=== PATIENT | female | born 1955 | race Caucasian/White ===

== ENCOUNTER 2016-10-29 18:13 | Emergency (ER) | payer OTHER ==
[~2016-10-29 18:13] MED LIST: ADVAIR 5001 DISK W/D PO; AZMACORT20 GM INH; CHANTIX PO; COMBIVENT INH14.7 GM INH; COMBIVENT U/D3 M2 INH; HUMIBID DM1 TAB.SR . PO; HYDROCHLOROTHIA25 MG PO; LEVAQUIN PO; LISINOPRIL PO; SYMBICORT INH; TOPROL XL50 MG PO; VICODIN 5/500 T1 TAB PO
== END 2016-10-29 19:06 | disposition home or self-care (01) ==
LOC: CFTX 18:13
DX: S46.212A Strain of muscle, fascia and tendon of other parts of biceps, left arm, initial encounter (principal); J44.9 Chronic obstructive pulmonary disease, unspecified; I10 Essential (primary) hypertension; F17.210 Nicotine dependence, cigarettes, uncomplicated; Z79.899 Other long term (current) drug therapy; Z88.1 Allergy status to other antibiotic agents; Z88.8 Allergy status to other drugs, medicaments and biological substances; X50.0XXA Overexertion from strenuous movement or load, initial encounter; Y92.69 Other specified industrial and construction area as the place of occurrence of the external cause; Y99.0 Civilian activity done for income or pay
CPT/HCPCS: 99283

== ENCOUNTER 2016-11-27 23:55 | Emergency (ER) | payer BC ==
--- NOTE | ~2016-11-27 | CT52 ---
[facility] A Service of [facility] RADIOLOGY TEXT RESULTS PATIENT: WU SHEETS LOCATION: [facility] : 53 UNIT #: [id number] AGE: [address]: Prudencio Blackwell MD SEX: F ORDER DR: [id number] [facility] [address] [place], [place] [address] [id number] E MR#: [id number] Acc #: [id number] NAME: WU SHEETS. : 1955 SEX: F STUDY DATE/TIME: 11/28/2016 01:41 UNIT: [facility] ROOM: STUDY DESCRIPTION: CT Cervical Spine Wo Cont Attending Physician: Prudencio Blackwell M.D. Ordering Physician: Prudencio Blackwell M.D. Primary Care Physician: Diana Jacobson A.P.R.N. MEDICAL IMAGING REPORT This report is preliminary unless electronic signature is present EXAM Cervical spine CT 11/28/2016 at 01:41 INDICATIONS Patient got dizzy and fell tonight. Left-side neck pain and weakness. Patient intoxicated. TECHNIQUE Axial images were obtained through the cervical spine without contrast. Multiplanar reformats were obtained. No comparison. This CT exam was performed with one or more of the following radiation dose reduction techniques: automatic exposure control, adjustment of mA and/or kV according to patient size, and iterative reconstruction. FINDINGS There is grade 1 retrolisthesis of C5 on C6. There is grade 1 anterolisthesis of C4 on C5. There is a chronic-appearing left C5 superior facet fracture. No acute cervical spine fractures are identified. There is multilevel degenerative facet arthropathy. There are there is multilevel degenerative disc disease as well with broad-based disc osteophyte complex is noted. IMPRESSION 1. No acute fractures. 2. There is an old essentially nondisplaced left C5 superior facet fracture. 3. Multilevel degenerative disc disease and facet arthropathy 4. Spondylolisthesis of C4 and C5. Dictated by... [facility] A Service of [facility] RADIOLOGY TEXT RESULTS PATIENT: WU SHEETS LOCATION: [facility] : 53 UNIT #: [id number] AGE: [address]: Prudencio Blackwell MD SEX: F ORDER DR: Stanislaw Gonzalez Jr., M.D. THIS IS AN ELECTRONICALLY VERIFIED REPORT Stanislaw Gonzalez Jr., M.D. at 11/28/2016 5:56 AM ROSELINE/speedy TD: 11/28/2016 04:32 JOB #: [id number] MEDICAL IMAGING REPORT Page 1 of 1 COPY
--- NOTE | ~2016-11-27 | CR72 ---
[facility] A Service of [facility] RADIOLOGY TEXT RESULTS PATIENT: WU SHEETS LOCATION: [facility] : 53 UNIT #: [id number] AGE: [address]: Prudencio Blackwell MD SEX: F ORDER DR: [id number] [facility] [address] [place], [place] [address] [id number] E MR#: [id number] Acc #: [id number] NAME: WU SHEETS. : 1955 SEX: F STUDY DATE/TIME: 11/28/2016 02:14 UNIT: [facility] ROOM: STUDY DESCRIPTION: CR Chest Single View Portable Attending Physician: Prudencio Blackwell M.D. Ordering Physician: Prudencio Blackwell M.D. Primary Care Physician: Diana Jacobson A.P.R.N. MEDICAL IMAGING REPORT This report is preliminary unless electronic signature is present EXAM Portable chest 11/28/2016 at 0214 hours. INDICATIONS Shortness of air, weakness tonight. Patient intoxicated and fell. FINDINGS AP portable chest is compared 08/07/2016. Cardiac and mediastinal contours are normal. There is emphysema. The nodule in the left midlung is unchanged. This previously was evaluated with CT and PET/CT. Please see those reports. No pneumothorax. IMPRESSION Emphysema. Grossly stable known left mid lung nodule. No acute findings in the chest. Dictated by... Stanislaw Gonzalez Jr., M.D. THIS IS AN ELECTRONICALLY VERIFIED REPORT Stanislaw Gonzalez Jr., M.D. at 11/28/2016 5:56 AM ROSELINE/speedy TD: 11/28/2016 04:25 JOB #: [id number] MEDICAL IMAGING REPORT Page 1 of 1 COPY
--- NOTE | ~2016-11-27 | CT71 ---
[facility] A Service of [facility] RADIOLOGY TEXT RESULTS PATIENT: WU SHEETS LOCATION: [facility] : 54 UNIT #: [id number] AGE: [address]: Stanislaw Kevin MD SEX: F ORDER DR: [id number] [facility] [address] [place], [place] [address] [id number] E MR#: [id number] Acc #: [id number] NAME: WU SHEETS : 1955 SEX: F STUDY DATE/TIME: 11/28/2016 5:53 UNIT: [facility] ROOM: STUDY DESCRIPTION: CT Head Wo Contrast Attending Physician: Stanislaw Kevin M.D. Ordering Physician: Prudencio Blackwell M.D. Primary Care Physician: Diana Jacobson A.P.R.N. MEDICAL IMAGING REPORT This report is preliminary unless electronic signature is present EXAM CT scan head without contrast. HISTORY Head trauma. Dizzy. Left sided weakness. Follow up hyperdense area seen in cerebellum on early study from 1:43. This CT exam was performed with one or more of the following radiation dose reduction techniques: automatic exposure control, adjustment of mA and/or kV according to patient size, and iterative reconstruction. FINDINGS Unenhanced images were obtained through the brain. There is some hyperdense linear material associated with the fourth ventricle and cerebellum which is probably the choroid plexus. It is certainly unchanged from the prior study. There is mild prominence of the ventricles. There is no mass or extraaxial fluid collection or hemorrhage. There is soft tissue swelling in the right frontal region. IMPRESSION 1. Soft tissue swelling in the right frontal scalp. 2. Otherwise the study is normal. I think the hyperdense area in the posterior fossa represents choroid plexus in the fourth ventricle and is uncertainly unchanged from four hours ago. Dictated by... Arturo Castro M.D. THIS IS AN ELECTRONICALLY VERIFIED REPORT Arturo Castro M.D. at 11/28/2016 8:41 AM [facility] A Service [facility] RADIOLOGY TEXT RESULTS PATIENT: WU SHEETS LOCATION: [facility] : 53 UNIT #: [id number] AGE: [address]: Stanislaw Kevin MD SEX: F ORDER DR: Justin TD: 11/28/2016 07:46 JOB #: [id number] MEDICAL IMAGING REPORT Page 1 of 1 COPY
--- NOTE | ~2016-11-27 | CT71 ---
[facility] A Service of [facility] RADIOLOGY TEXT RESULTS PATIENT: WU SHEETS LOCATION: [facility] : 53 UNIT #: [id number] AGE: [address]: Prudencio Blackwell MD SEX: F ORDER DR: [id number] [facility] [address] [place], [place] [address] [id number] E MR#: [id number] Acc #: [id number] NAME: WU SHEETS. : 1955 SEX: F STUDY DATE/TIME: 11/28/2016 01:43 UNIT: [facility] ROOM: STUDY DESCRIPTION: CT Head Wo Contrast Attending Physician: Prudencio Blackwell M.D. Ordering Physician: Prudencio Blackwell M.D. Primary Care Physician: Diana Jacobson A.P.R.N. MEDICAL IMAGING REPORT This report is preliminary unless electronic signature is present EXAM Head CT 11/28/2016 at 01:43 INDICATION Patient had dizziness and subsequently fell tonight. The right side headache. Patient intoxicated. This CT exam was performed with one or more of the following radiation dose reduction techniques: automatic exposure control, adjustment of mA and/or kV according to patient size, and iterative reconstruction. FINDINGS Axial images were obtained from the base to the vertex without contrast. Ventricular size and configuration within normal limits. No acute infarct. No masses. There is no skull fracture. Atherosclerotic calcifications are present in the carotid siphons. There is soft tissue swelling in the right frontal scalp. There is a linear area of high density in the posterior fossa which appears to be coming from the fourth ventricle and extending posteriorly. This would be unusual appearance of acute hemorrhage but I would still recommend a followup CT the next 2 to 4 hours. This may simply reflect some choroid plexus. IMPRESSION 1. Linear area of high density in the posterior fossa near the fourth ventricle. This would be an usual appearance for acute hemorrhage, but this cannot be completely excluded as I have no comparisons. Followup head CT in the next 2 to 4 hours recommended. 2. Soft tissue swelling in the right frontal scalp. No skull fracture. STAT * RESULT [facility] A Service of [facility] RADIOLOGY TEXT RESULTS PATIENT: WU SHEETS LOCATION: [facility] #: [id number] : 53 UNIT #: [id number] AGE: [address]: Prudencio Blackwell MD SEX: F ORDER DR: Dictated by... Stanislaw Gonzalez Jr., M.D. THIS IS AN ELECTRONICALLY VERIFIED REPORT Stanislaw Gonzalez Jr., M.D. at 11/28/2016 5:52 AM ROSELINE/speedy TD: 11/28/2016 03:02 JOB #: [id number] MEDICAL IMAGING REPORT Page 1 of 1 COPY
--- NOTE | ~2016-11-27 | EKG ---
PATIENT: WU SHEETS UNIT #: [id number] Ventricular Rate: 69 BPM Atrial Rate: 69 BPM P-R Interval: 148 ms QRS Duration: 80 ms Q-T Interval: 400 ms QTC Calculation(Bezet): 428 ms P [place]: 71 degrees Calculated R [place]: 60 degrees Calculated T [place]: 45 degrees Diagnosis Line: Normal sinus rhythm Diagnosis Line: Normal ECG Diagnosis Line: No previous ECGs available Diagnosis Line: Confirmed by LAURI OCHOA MD ([id number]) on 11/29/2016 Diagnosis Line: 10:34:34 AM INTERPRETING MD: DON ELY
[2016-11-28 02:10] LABS: ALBUMIN SERUM 4.3 g/dL (3.5-5.0); BILIRUBIN, DIRECT 0.1 mg/dL (0.0-0.2); BILIRUBIN,INDIRECT 0.5 mg/dL (0.0-0.9); BILIRUBIN,TOTAL 0.6 mg/dL (0.2-2.0); CALCIUM SERUM 8.8 mg/dL (8.4-10.2); CREATININE SERUM 0.5 mg/dL (0.6-1.4); GLOM FILT RATE Estimated 103.7 mL/min (>60); POTASSIUM 3.6 mmol/L (3.5-5.1); PROTEIN TOTAL SERUM 6.9 g/dL (6.0-8.3)
[2016-11-28 02:26] LABS: URINE SOURCE CLEAN CATCH
[2016-11-28 02:33] LABS: BASOPHIL# 0.1 X10e3 (0-0.3); BASOPHIL% 0.7 % (0-2.5); EOSINOPHIL# 0.2 X10e3 (0-0.7); EOSINOPHIL% 1.5 % (0.0-7.0); HEMOGLOBIN 14.3 gm/dL (12.0-16.0); LYMPHOCYTE# 5.2 X10e3 (1.0-3.5); LYMPHOCYTE% 42.4 % (17.0-45.0); MEAN CELL VOLUME 96.2 FL (83-96); MEAN CORPUSCULAR HEMOGLOBIN 32.8 PG (28-34); MEAN CORPUSCULAR HGB CONC 34.1 g/dL (30-36); MEAN PLATELET VOLUME 8.1 FL (6.5-11.5); MONOCYTE# 0.9 X10e3 (0-1.0); MONOCYTE% 7.6 % (3.0-12.0); NEUTROPHIL# 5.9 X10e3 (1.5-7.1); NEUTROPHIL% 47.8 % (40-75); PLATELET COUNT 256 X10e3 (140-420); RED BLOOD COUNT 4.36 X10e (3.90-5.30); RED CELL DISTRIBUTION WIDTH 13.2 % (11.0-15.5); WHITE BLOOD COUNT 12.3 X10e3 (4.0-10.5)
[2016-11-28 02:33] LABS: URINE APPEARANCE CLEAR; URINE BILIRUBIN NEG (NEG); URINE BLOOD NEG (NEG); URINE COLOR YELLOW; URINE GLUCOSE NEG (NEG); URINE KETONE NEG (NEG); URINE LEUKOCYTE ESTERASE NEG (NEG); URINE NITRATE NEG (NEG); URINE PH 5.5 (5-8); URINE PROTEIN NEG (NEG); URINE SPECIFIC GRAVITY 1.004 (1.003-1.035); URINE UROBILINOGEN 0.2 MG/DL (NEG)
[2016-11-28 02:34] LABS: DIFF IND NO
[2016-11-28 02:36] LABS: CULTURE INDICATED? NO
== END 2016-11-28 08:40 | disposition home or self-care (01) ==
LOC: CED 23:55
PROVIDERS: Emergency Medicine
DX: S00.31XA Abrasion of nose, initial encounter (principal); E87.1 Hypo-osmolality and hyponatremia; F10.129 Alcohol abuse with intoxication, unspecified; Y90.8 Blood alcohol level of 240 mg/100 ml or more; R55 Syncope and collapse; I10 Essential (primary) hypertension; F17.200 Nicotine dependence, unspecified, uncomplicated; W19.XXXA Unspecified fall, initial encounter; Y92.009 Unspecified place in unspecified non-institutional (private) residence as the place of occurrence of the external cause
CPT/HCPCS: 36415; 70450; 71010; 72125; 80048; 80076; 81003; 82947; 85025; 93005; 99285; G0480

== ENCOUNTER → 2017-03-12 | Outpatient (CLI) | payer BC ==
--- NOTE | ~2017-03-12 | CT57 ---
[facility] A Service of [facility] & [facility] RADIOLOGY TEXT RESULTS PATIENT: WU SHEETS LOCATION: [facility] : 53 UNIT #: [id number] AGE: [address]: Dylan Topete MD SEX: F ORDER DR: [id number] [facility] [address] [place], [place] [address] [id number] O MR#: [id number] [facility] #: [id number] NAME: WU SHEETS : 1955 SEX: F STUDY DATE/TIME: 03/12/2017 16:31 UNIT: [facility] ROOM: STUDY DESCRIPTION: CT Chest Wo Cont Attending Physician: Dylan oTpete M.D. Referring Physician: Dylan Topete M.D. Ordering Physician: Dylan Topete M.D. Primary Care Physician: Diana Jacobson A.P.R.N. MEDICAL IMAGING REPORT This report is preliminary unless electronic signature is present EXAM CT chest without contrast 03/12/2017 1631 hours HISTORY 61-year-old woman with 6-month history of shortness of air. Follow up left lung nodule. COMPARISON PET CT 06/05/2016, and CT chest 05/24/2016. TECHNIQUE Helical noncontrasted images were obtained from the thoracic inlet through the adrenal glands. Sagittal and coronal reconstructions were performed. No contrast was administered. Total exam DLP 356 mGy-cm. This CT exam was performed with one or more of the following radiation dose reduction techniques: automatic exposure control, adjustment of mA and/or kV according to patient size, and iterative reconstruction. FINDINGS Images through the thoracic inlet demonstrate no thyroid lesion or supraclavicular adenopathy. Images through the chest demonstrate no pathologically enlarged nodes. There is atherosclerotic change in the ascending aorta with minimal ectasia measuring only 3.3 cm. Main pulmonary artery is mildly prominent, but unchanged. There is no pericardial or pleural fluid. Cardiac chambers are normal in size. The esophagus is normal. The lung window images again demonstrate an irregular marginated homogeneous soft tissue mass in the lingular segment of the left upper lobe, measuring 2.4 x 2.9 cm increased from 05/24/2016, where it measured 2.4 x 2.3 cm. This does abut and involve the pleura of the fissure. There are a few small micronodules at the left lung base unchanged. There [facility] A Service of [facility] & [facility] RADIOLOGY TEXT RESULTS PATIENT: WU SHEETS LOCATION: [facility] : 53 UNIT #: [id number] AGE: [address]: Dylan Topete MD SEX: F ORDER DR: is no pleural fluid. Limited views through the upper abdomen are negative. IMPRESSION 1. The nodule which is soft tissue in density and slightly irregular marginated in the lingular segment of the left upper lobe which abuts and involves the pleura of the fissure measures slightly larger than 05/24/2016. This demonstrated only minimal increased activity above blood pool on PET/CT 06/05/2016. Malignancy cannot be excluded. Patient did undergo CT-guided biopsy of this lesion on 08/07/2016 and correlation with those biopsy results is recommended. Malignancy cannot be excluded. 2. There are a few noncalcified micronodules at the left lung base which remain stable. Dictated by... Kisha Schwab M.D. THIS IS AN ELECTRONICALLY VERIFIED REPORT Kisha Schwab M.D. at 03/14/2017 9:03 AM Riccardo TD: 03/13/2017 14:45 JOB #: [id number] MEDICAL IMAGING REPORT Page 1 of 1 COPY
== END | disposition home or self-care (01) ==
LOC: CCAT 16:08
DX: R91.1 Solitary pulmonary nodule (principal); R91.8 Other nonspecific abnormal finding of lung field; J44.9 Chronic obstructive pulmonary disease, unspecified; R76.8 Other specified abnormal immunological findings in serum
CPT/HCPCS: 71250